=== PATIENT | female | born 1980 | race Asian ===

== ENCOUNTER 2017-03-07 11:39 | Emergency (ER) | payer OTHER ==
[~2017-03-07] VITALS: Ht 165.1 cm; Wt 58.5 kg
[2017-03-07 11:42] VITALS: TEMP 36.9; Ht 165.1 cm; Wt 58.5 kg
[2017-03-07 13:01] LABS: HEMATOCRIT 36.9 % (37-47); MEAN CELL VOLUME 89.6 fL (80-100); MEAN CORPUSCULAR HEMOGLOBIN 30.3 pg (25-34); MEAN CORPUSCULAR HGB CONC 33.9 g/dl (32-36); PLATELET COUNT 219 K/uL (130-400); RED BLOOD COUNT 4.12 M/uL (4.2-5.4); WHITE BLOOD COUNT 5.76 K/uL (4.8-10.8)
[2017-03-07 13:28] LABS: BUN/CREATININE RATIO 17.7 (10-20); CALCIUM 8.9 mg/dl (8.5-10.1); CREATININE 0.65 mg/dl (0.60-1.20); POTASSIUM 3.5 mmol/L (3.5-5.1)
[2017-03-07] MEDS ORDERED: SODIUM CHLORIDE 0.9% 1000ML 1,000 ML IV STA (13:35)
--- NOTE | 2017-03-07 13:58 | EMERGENCY ROOM VISIT NOTE ---
ED Visit Note First contact with patient: 13:13 CHIEF COMPLAINT: Vaginal bleeding HISTORY OF PRESENT ILLNESS: This 36-year-old female presents to the emergency department complaining of abdominal cramping and heavy vaginal bleeding with clots. She estimates she is 4-6 weeks . She is . She began having vaginal bleeding yesterday with just light spotting, she developed heavy bleeding and clots with lower abdominal cramping and some low back pain this morning. She does not feel dizzy, weak, or faint. There has been no sweating or loss of consciousness. She denies trauma to the abdomen, recent illnesses, or fever. REVIEW OF SYSTEMS: Head: No headache, injury or neck pain. Neck: No pain, stiffness, or swelling. Neurological: No headache, new changes in mental status, vertigo, focal weakness, numbness. Cardiac: No chest pain, diaphoresis , dyspnea on exertion, orthopnea, pedal edema, or palpitations. Respiratory: No cough, change in sputum, wheezes, hemoptysis, shortness of breath, or stridor. Gastrointestinal: No blood in stools, diarrhea, loss of appetite, nausea, or vomiting. Skin: No rash, new lesions, or masses. PMH: The patient is healthy; there is no significant medical or surgical history. SOCIAL HISTORY: Patient lives at home with her and 1 child. PHYSICAL EXAM: Vital Signs: Reviewed Nurse's notes. HEAD: Atraumatic, without temporal or scalp tenderness. EYES: PERRL, EOMI, no discharge or injection. LUNGS: Clear to auscultation and breath sounds equal, no wheezes, rales, or rhonchi. HEART: Regular rate and rhythm without murmurs, ectopy, gallops, or rubs. ABDOMEN: Soft, nontender, no hepatosplenomegaly, or masses. BACK: Nontender to palpation; no spasm or CVAT. GENITOURINARY: No ulcers, vesicles or atrophy of the vulva noted. Pelvic exam reveals moderate amount of dark red blood and clots within the vaginal canal. The cervix is open to 2 fingerbreadths with blood clot retained inside the cervical os. No adnexal tenderness or uterine tenderness. No abnormal discharge. No cervical motion tenderness. Nurse was present as lathe tender during the examination. IMAGING: ULTRASOUND OF THE PELVIS CLINICAL HISTORY: Vaginal bleeding. COMPARISON STUDY: No priors. TECHNIQUE: Real-time, grayscale, and color flow sonography of the pelvis is performed both transabdominally and endovaginally. Images are reviewed in the transverse and longitudinal planes. FINDINGS: Uterus: The retroverted uterus is normal in size and echotexture, measuring 8.2 x 5.6 x 6.5 cm. Nabothian cysts are noted in the cervix. Endometrium: The endometrium is normal in appearance, and the endometrial stripe is normal in thickness measuring up to 0.6 cm. Ovaries: The ovaries are normal in size and morphology. The right ovary measures 2.0 x 1.9 x 1.6 cm and the left ovary measures 2.5 x 1.8 x 1.5 cm. Small follicles are seen in both ovaries. Normal Doppler waveforms are shown within both ovaries. Pelvis: There is trace free fluid in the cul-de-sac. No concerning adnexal lesion is seen. IMPRESSION: 1. No acute sonographic abnormality is seen in the pelvis noting a retroverted uterus. 2. There is trace and likely physiologic free fluid in the cul-de-sac. EMERGENCY DEPARTMENT COURSE: I examined the patient. Differential diagnosis includes threatened miscarriage versus incomplete miscarriage versus complete miscarriage, ectopic , anemia. Pelvic exam consistent with an in- process miscarriage. Labs reviewed, beta hCG Quant is significantly low at 39. She is not anemic, no leukocytosis, no significant electrolyte abnormalities and normal renal function. Pelvic ultrasound shows no evidence of IUP and no acute abnormality. I discussed on the phone with Dr. Ella Garcia, OB, who agrees findings are consistent with miscarriage. She recommended follow-up beta hCG Quant in 1 week and follow up in 3-4 weeks with OB. The patient was given IV Toradol for her abdominal cramping pain. I discussed all results and plan for follow-up with the patient and her , they verbalized understanding. Patient was discharged home in stable condition and ambulatory. The patient was discussed with Dr. stubbs, who agrees with my assessment and disposition. Current/Historical Medications No Active Prescriptions or Reported Meds Allergies Coded Allergies: No Known Allergies (Unverified , 03/07/17) Vital Signs Date Time Temp Pulse Resp B/P (MAP) Pulse Ox O2 Delivery O2 Flow Rate FiO2 03/07/17 15:09 83 16 104/66 96 Room Air 03/07/17 13:15 96 16 105/70 97 Room Air 03/07/17 11:42 36.9 89 15 99/64 95 Room Air Laboratory Results 03/07/17 12:39 03/07/17 12:39 Test 03/07/17 12:39 Red Blood Count 4.12 M/uL (4.2-5.4) Mean Corpuscular Volume 89.6 fL (80-100) Mean Corpuscular Hemoglobin 30.3 pg (25-34) Mean Corpuscular Hemoglobin Concent 33.9 g/dl (32-36) RDW Standard Deviation 40.7 fL (36.4-46.3) RDW Coefficient of Variation 12.5 % (11.5-14.5) Mean Platelet Volume 9.0 fL (7.4-10.4) Anion Gap 5.0 mmol/L (3-11) Est Creatinine Clear Calc Drug Dose 108.7 ml/min Estimated GFR () 133.3 Estimated GFR (Non- 115.0 BUN/Creatinine Ratio 17.7 (10-20) Calcium Level 8.9 mg/dl (8.5-10.1) Human Chorionic Gonadotropin, Quant 39 mIU/mL Medications Administered Medications (Trade) Dose Ordered Sig/Zaina Route Start Time Stop Time Status Last Admin Dose Admin Sodium Chloride 1,000 ml @ 999 mls/hr Q1H1M STAT IV 03/07/17 13:35 03/07/17 14:35 DC 03/07/17 15:10 999 MLS/HR Departure Information Impression Primary Impression: Spontaneous miscarriage Dispostion Home / Self-Care Condition GOOD Prescriptions No Active Prescriptions or Reported Meds Referrals No Doctor, Assigned (PCP) Ella Victoria M.D. Patient Instructions ED Miscarriage Inevitable, Miscarriage Recovery, [facility] Additional Instructions You should have repeat blood work done in 1 week. You can take the script with you to [facility] or at [facility] ([facility]). You should follow up with OB in the next 3-4 weeks. You may follow up with a provider at [facility], or you may see an OB provider with the [facility]. Please call to have an appointment scheduled for follow-up. Avoid strenuous activity for the next few days until your bleeding and pain have stopped. You should expect to have some heavy bleeding/blood clots and abdominal cramping similar to period cramping over the next 1-2 days. You may take Tylenol 1,000mg or ibuprofen 600mg every 8 hours as needed for pain. Please return to the ER for any worsening symptoms, including severe abdominal or back pain, heavy vaginal bleeding (soaking through more than 1 pad per hour) , dizziness or passing out, fevers/chills/feeling ill, or any other concerns.
--- NOTE | 2017-03-07 14:51 | DIAGNOSTIC IMAGING REPORT ---
ULTRASOUND OF THE PELVIS CLINICAL HISTORY: Vaginal bleeding. COMPARISON STUDY: No priors. TECHNIQUE: Real-time, grayscale, and color flow sonography of the pelvis is performed both transabdominally and endovaginally. Images are reviewed in the transverse and longitudinal planes. FINDINGS: Uterus: The retroverted uterus is normal in size and echotexture, measuring 8.2 x 5.6 x 6.5 cm. Nabothian cysts are noted in the cervix. Endometrium: The endometrium is normal in appearance, and the endometrial stripe is normal in thickness measuring up to 0.6 cm. Ovaries: The ovaries are normal in size and morphology. The right ovary measures 2.0 x 1.9 x 1.6 cm and the left ovary measures 2.5 x 1.8 x 1.5 cm. Small follicles are seen in both ovaries. Normal Doppler waveforms are shown within both ovaries. Pelvis: There is trace free fluid in the cul-de-sac. No concerning adnexal lesion is seen. IMPRESSION: 1. No acute sonographic abnormality is seen in the pelvis noting a retroverted uterus. 2. There is trace and likely physiologic free fluid in the cul-de-sac. Electronically signed by: Anthony Alicia M.D. 03/07/2017 2:50 PM Dictated Date/Time: 03/07/2017 2:48 PM
[2017-03-07] MEDS ORDERED: KETOROLAC TROMETHAMINE 30 MG/ML VIAL IV STA (15:20)
[2017-03-07 16:28] VITALS: BP 104/68; PULSE 80; O2SAT 97
== END 2017-03-07 16:25 | disposition home or self-care (01) ==
LOC: C.EDB 11:41 → C.EDC 16:25
DX: O03.9 Complete or unspecified spontaneous abortion without complication (principal)

== ENCOUNTER → 2017-03-14 | Outpatient (CLI) | payer OTHER ==
--- NOTE | 2017-03-20 16:05 | CODING QUERY MEDICAL NECESSITY ---
SUPPORTING DIAGNOSIS NEEDED A supporting diagnosis is required for the test/procedure performed on this patient in order for us to be reimbursed by the patient's insurance. Please provide a supporting diagnosis for the following test/procedure listed below next to the test name along with your signature. *If there is no additional diagnosis for this patient that would support the following test/procedure please document that below next to the test/procedure. Test(s)/Procedure(s) that require a supporting diagnosis: * BETA-HCG, QUANTITATIVE FEMALE DIAGNOSIS: Provider Signature: Date: Thank you Yue Thibodeaux [employer] Once completed, please kindly fax back to [phone] For questions please call [phone]
== END | disposition home or self-care (01) ==
LOC: C.LAB 09:14
PROVIDERS: ATTEND Nurse Practitioner
DX: O20.0 Threatened abortion (principal); Z3A.00 Weeks of gestation of pregnancy not specified; O26.859 Spotting complicating pregnancy, unspecified trimester

== ENCOUNTER → 2017-10-09 | Outpatient (CLI) | payer OTHER | END | disposition home or self-care (01) | LOC: C.LABSPEC 15:33 | PROVIDERS: ATTEND Obstetrics & Gynecology | DX: O09.521 Supervision of elderly multigravida, first trimester (principal); Z3A.00 Weeks of gestation of pregnancy not specified ==

== ENCOUNTER → 2017-10-16 | Outpatient (CLI) | payer OTHER ==
[2017-10-16 14:40] LABS: BASO % 0.3 %; BASO ABS # 0.02 K/uL (0-0.2); EOS % 1.3 %; EOS ABS # 0.08 K/uL (0-0.5); HEMATOCRIT 36.2 % (37-47); IG# 0.01 K/uL (0.00-0.02); LYMPH % 26.1 %; LYMPH ABS # 1.56 K/uL (1.2-3.4); MEAN CELL VOLUME 89.6 fL (80-100); MEAN CORPUSCULAR HEMOGLOBIN 29.7 pg (25-34); MEAN CORPUSCULAR HGB CONC 33.1 g/dl (32-36); MEAN PLATELET VOLUME 9.8 fL (7.4-10.4); MONO % 10.9 %; MONO ABS # 0.65 K/uL (0.11-0.59); NEUT % 61.2 %; NEUT ABS # 3.66 K/uL (1.4-6.5); PLATELET COUNT 261 K/uL (130-400); RED CELL DISTRIBUTION WIDTH CV 12.5 % (11.5-14.5); WHITE BLOOD COUNT 5.98 K/uL (4.8-10.8)
== END | disposition home or self-care (01) ==
LOC: C.LAB1850 13:10
PROVIDERS: ATTEND Obstetrics & Gynecology
DX: O09.521 Supervision of elderly multigravida, first trimester (principal)

== ENCOUNTER → 2017-10-16 | Outpatient (CLI) | payer OTHER | END | disposition home or self-care (01) | LOC: C.PAPS 15:27 | PROVIDERS: ATTEND Obstetrics & Gynecology | DX: O09.521 Supervision of elderly multigravida, first trimester (principal) ==

== ENCOUNTER → 2017-11-28 | Outpatient (CLI) | payer OTHER | END | disposition home or self-care (01) | LOC: C.LAB1850 14:00 | PROVIDERS: ATTEND Obstetrics & Gynecology | DX: O09.522 Supervision of elderly multigravida, second trimester (principal); Z3A.00 Weeks of gestation of pregnancy not specified ==

== ENCOUNTER → 2017-12-05 | Outpatient (CLI) | payer OTHER | END | disposition home or self-care (01) | LOC: C.LAB1850 08:20 | PROVIDERS: ATTEND Obstetrics & Gynecology | DX: O28.1 Abnormal biochemical finding on antenatal screening of mother (principal); Z3A.00 Weeks of gestation of pregnancy not specified ==